=== PATIENT | female | born 1975 | race African-American/Black ===

== ENCOUNTER → 2018-07-03 | Outpatient (CLI) | payer OTHER ==
[~2018-07-03] MED LIST: CONTRAST GIVEN. MC PRN; GADOBUTROL 7.5 MMOL/7.5 ML VIAL INT ART ONE; IOHEXOL 300 MG/ML 50 ML VIAL. INT ART ONE; LIDOCAINE 1% Multi-Dose 20 ML VIAL. ID ONE
--- NOTE | 2018-07-03 14:46 | KCIC ---
EXAM: Left glenohumeral joint injection WITH Fluoroscopic guidance DATE: 07/03/2018 1:00 PM CLINICAL HISTORY: Left shoulder pain, limited range of motion left shoulder COMPARISON: None pertinent TECHNIQUE: The patient was informed of the indications and alternatives for this procedure as well as risks and benefits. No immediate contraindication identified. The patient provided informed, written consent. Laterality was confirmed by the entire team following a time out. Following initial Left glenohumeral joint localization, a suitable area was sterilely prepped and draped. Local anesthesia was administered with 1% xylocaine. With intermittent fluoroscopic observation, a 22-gauge spinal needle was advanced into the Left glenohumeral joint sheath/capsule with confirmation of via fluoroscopy. Subsequent infusion 12 cc solution containing 10 cc saline, 5 cc lidocaine 1%, 5 cc Isovue and 0.1 cc gadolinium. Hemostasis with local pressure. Local clinical exam negative for immediate complication. Patient informed re local potential signs or symptoms that may indicate need to return to ER/Ordering physician for further evaluation. Patient informed re precautionary measures after intra-synovial injection of anesthetic. Patient expressed understanding. Performing Physicians: Dr. Celeste Norton Blood Loss: 0 cc Total Fluoroscopy time: 7 seconds spot images taken: 0 Fluoroscopic screen save images: 1 IMPRESSION: Successful intra-synovial injection of aorta joint with gadolinium contrast per clinical request. Electronically signed by: Zane Norton MD (07/03/2018 2:42 PM) [facility]
--- NOTE | 2018-07-03 16:00 | KCIC ---
EXAM: MR arthrogram left shoulder DATE: 07/03/2018 2:00 PM COMPARISON: 07/03/2018 fluoroscopic image INDICATION: Left shoulder pain TECHNIQUE: Multiplanar, multisequence MRI of the left shoulder was performed without IV contrast. Exam was performed following the administration of intra-articular gadolinium contrast is described in separate report. FINDINGS: Mild AC joint degenerative changes with mild proliferative change. Iatrogenic distention of the left glenohumeral joint with gadolinium contrast. There is subacromial-subdeltoid bursal distention with gadolinium characteristics likely from full-thickness tear described below. There is a full-thickness tear of the anterior most fibers of the supraspinous tendon measuring approximately 1.1 cm in AP dimension and 8mm retraction. Rotator cuff muscle signal and bulk is normal without significant fatty atrophy. Intra-articular long head biceps tendon is normal in signal and morphology. Although the posterior and inferior labrum is slightly diminutive, no discrete labral tear is identified. No evidence for fracture or AVN. No definite full-thickness cartilage defect is identified. IMPRESSION: 1. Full-thickness tear of the anterior most fibers of the supraspinous tendon measuring 1.1 cm in AP dimension and 8 mm retraction. 2. Subacromial-subdeltoid bursal distention with gadolinium characteristics. 3. The posterior and inferior labrum is somewhat diminutive, based on morphology, this may be from prior surgery or physiologic for this patient. No discrete labral tear is identified. Electronically signed by: Zane Norton MD (07/03/2018 3:55 PM) [facility]
== END | disposition home or self-care (01) ==
LOC: KCIC 12:44
PROVIDERS: ATTEND Physician Assistant
DX: M19.012 Primary osteoarthritis, left shoulder (principal); M75.102 Unspecified rotator cuff tear or rupture of left shoulder, not specified as traumatic; M75.82 Other shoulder lesions, left shoulder
CPT/HCPCS: 73040; 73222; A9585; Q9967

== ENCOUNTER → 2018-09-15 | Outpatient (CLI) | payer OTHER ==
[~2018-09-15] MED LIST changes: +ACET500T68 PO; +AMLO5TAB10 PO; -CONTRAST GIVEN. MC PRN; +CYCL10TA2 PO; -GADOBUTROL 7.5 MMOL/7.5 ML VIAL INT ART ONE; +IBUP-1060 PO; +IOHEXOL 180 MG/ML 10 ML VIAL. ONE; -IOHEXOL 300 MG/ML 50 ML VIAL. INT ART ONE; -LIDOCAINE 1% Multi-Dose 20 ML VIAL. ID ONE; +methylPREDNISolone ACETATE 40 MG/ML VIAL. ONE; +methylPREDNISolone ACETATE 80 MG/ML VIAL. ONE
--- NOTE | 2018-09-15 22:31 | PAIN ---
DATE OF SERVICE: 09/15/2018 PROGRESS NOTE FOR PAIN CLINIC DIAGNOSES: Lumbar radiculopathy with lumbar degenerative disk disease and lumbar spinal stenosis. HISTORY OF PRESENT ILLNESS: The patient is a 43-year-old female who returns for followup status post previous evaluation and preauthorization for lumbar epidural steroid injection and also MRI results was reviewed with her today showing a significant large superimposed broad disk extrusion at the L5 level with a mild amount superior migration with severe spinal canal stenosis and mild bilateral neural foraminal narrowing present. The patient reports still significant pain in the low back, left lower extremity as it was previously. No new motor or sensory deficits and no new bowel or bladder incontinence. It is worse with walking, standing, changing positions, better with sitting or lying down, does not awaken her from sleep at night in the low back, posterior gluteus, posterior thigh on the left, posterior calf on the left at the ankle and foot. The patient reports it is a 7 on a scale of 10 at its worst over the past week, 4 on average and 3 at its least and is a 4 today. The patient reports it is aching, shooting, tingling, burning and also dull across the low back. The patient reports no new motor or sensory deficits and no new bowel or bladder incontinence or other complaints. PHYSICAL EXAMINATION: VITAL SIGNS: The patient's blood pressure 136/91, pulse 74, respirations 16 and temperature 98.6 degrees Fahrenheit. Weight is 210 pounds. GENERAL: The patient is awake, alert, oriented, appropriate and very pleasant demeanor. HEENT: Shows normocephalic and atraumatic. Extraocular movements are intact and symmetrical. Oral cavity: Mucous membranes moist and pink. Dentition is intact. NECK: Shows anterior throat supple without palpable lymphadenopathy noted. Swallow reflex symmetrical. CHEST: Shows normal with inspection. Breath sounds clear to auscultation bilaterally. HEART: Shows S1 and S2 clear. No murmurs auscultated. ABDOMEN: Soft, nontender and nondistended. No palpable organomegaly is noted. No rebound or guarding demonstrated. BACK: Shows spine grossly in the midline. Normal appearing thoracic kyphosis and some minor flattening of lumbar lordotic curvature. Lumbar paraspinous muscle shows symmetrical on inspection, on palpation shows some mild tenderness diffusely but only [id number] in the low lumbar distribution. No tenderness over the sacrum or sacroiliac regions. The patient has good rotational motion of the lumbar spine, both laterally as well as extension and flexion without difficulty. EXTREMITIES: Lower extremities show deep tendon reflexes 2+ in the patellar, 1+ tendo-calcaneus tendons. Motor exam is approximately 4 on a scale of 5 on the left, 5/5 on the right with dorsiflexion and extension. Peripheral pulses are 1+ posterior tibia. No peripheral edema is noted bilaterally. Options were discussed with the patient. The patient's old chart was reviewed as well as her current medication regimen updated. Current review of systems updated today as well. We will proceed with a lumbar epidural steroid injection first in this series with fluoroscopic guidance. Risks were again discussed including, but not limited to bleeding, infection, possibility of epidural hematoma, subsequent neurological compromise, dural puncture, headaches, spinal cord and/or nerve damage, side effects of steroid medication and poor results regarding pain control. The patient understands and wished to proceed. The patient will return to the clinic in approximately 2 weeks for followup, was counseled as to return appointment, activity level and side effects to be aware of. DIAGNOSES: Lumbar radiculopathy with lumbar degenerative disk disease and lumbar spinal stenosis. PROCEDURE: Lumbar epidural steroid injection, translaminar approach at L5-S1 level using C-arm fluoroscopic guidance under sterile prep and drape using local anesthetic. MEDICATION INJECTED: A total of 120 mg Depo-Medrol plus 10 mL of preservative-free normal saline and 2 mL of Isovue for contrast. CONDITION AT DISCHARGE: Stable. The patient tolerated the procedure well and had no complications. NICK FRIAS MD DR: KRYSTLE/esperanza JOB#: [id number] / [id number]
== END | disposition home or self-care (01) ==
LOC: PNCL 09:14
PROVIDERS: ATTEND Anesthesiology
DX: M51.16 Intervertebral disc disorders with radiculopathy, lumbar region (principal); M48.061 Spinal stenosis, lumbar region without neurogenic claudication
CPT/HCPCS: 62323; J1030; J1040; Q9965

== ENCOUNTER → 2018-10-04 | Outpatient (CLI) | payer OTHER ==
[~2018-10-04] MED LIST changes: -IOHEXOL 180 MG/ML 10 ML VIAL. ONE; -methylPREDNISolone ACETATE 40 MG/ML VIAL. ONE; -methylPREDNISolone ACETATE 80 MG/ML VIAL. ONE
--- NOTE | 2018-10-04 20:47 | PAIN ---
DATE OF SERVICE: 10/04/2018 DIAGNOSES: Lumbar radiculopathy with lumbar degenerative disk disease, lumbar spinal stenosis. HISTORY OF PRESENT ILLNESS: The patient is a 43-year-old female who returns for followup status post lumbar epidural steroid injection x 1. The patient reports about 70% improvement in her low back and left lower extremity pain. The patient reports still some numbness in the foot on the left side, tingling and burning and dull, but much better with the sharper pain that was in the back and the leg. The patient reports it is a 5 on a scale of 10 at its worst over the past week, 3 on average and a 3 at its least and is a 3 today. The patient reports it is dull with some tingling and burning in the left foot and left hip as well as into the left posterior thigh. The patient reports no new motor or sensory deficits, no new bowel or bladder incontinence or other complaints. The patient reports she has been increasing her activity with greater ease and comfort, walking greater distances, sleeping better at night, does not awaken her from sleep, much better with sitting or lying down, worse with walking and standing. The patient reports no new changes. No new bowel or bladder incontinence or other complaints. PHYSICAL EXAMINATION: VITAL SIGNS: The patient's blood pressure 157/99, pulse 88, respirations 18, temperature is 98.2 degrees Fahrenheit, weight is 211 pounds. GENERAL: The patient is awake, alert, oriented, appropriate, very pleasant demeanor. HEENT: Head shows normocephalic, atraumatic. Extraocular movements intact and symmetrical. Oral cavity: Mucous membranes moist and pink. NECK: Shows anterior throat supple. CHEST: Shows breath sounds clear to auscultation bilaterally. HEART: Shows S1, S2 clear. ABDOMEN: Soft, nontender, nondistended. BACK: Shows spine grossly in the midline. Lumbar paraspinous musculature shows symmetrical on inspection, with palpation shows some moderate tenderness diffusely in the low lumbar distribution, more on the left than the right, but symmetrical without evidence of atrophy or hypertrophy. The patient has good rotational motion of lumbar spine, both laterally as well as extension and flexion without difficulty. EXTREMITIES: Lower extremities show deep tendon reflexes at 2+ in the patellar, 1+ tendo-calcaneus tendons. Motor exam is strong with approximately 4 on a scale of 5 left dorsiflexion, extension, 5/5 on the right. Peripheral pulses are 1+ posterior tibia. No peripheral edema is noted. Options were discussed with the patient. The patient's old chart was reviewed as her current medication regimen and updated. Current review of systems is updated today as well. We will hold on injection at this time as she is scheduled for a rotator cuff surgery in about three days and the patient would like to wait until after her surgery before anymore intervention, although she would like to follow up with a second lumbar epidural steroid injection as she has been approved for this as well with her insurance [employer]. We will wait until after her surgery. I asked her to consult with her surgeon regarding timing for the next steroid shot as well and she will follow up after surgery. NICK FRIAS MD DR: KRYSTLE/esperanza JOB#: [id number] / [id number]
== END | disposition home or self-care (01) ==
LOC: PNCL 09:19
PROVIDERS: ATTEND Anesthesiology
DX: M51.16 Intervertebral disc disorders with radiculopathy, lumbar region (principal); M48.061 Spinal stenosis, lumbar region without neurogenic claudication
CPT/HCPCS: G0463

== ENCOUNTER → 2018-11-09 | Outpatient (CLI) | payer OTHER ==
[~2018-11-09] MED LIST changes: +IOHEXOL 180 MG/ML 10 ML VIAL. ONE; +methylPREDNISolone ACETATE 40 MG/ML VIAL. ONE; +methylPREDNISolone ACETATE 80 MG/ML VIAL. ONE
--- NOTE | 2018-11-10 02:28 | PAIN ---
DATE OF SERVICE: 11/09/2018 PROGRESS NOTE FOR PAIN CLINIC: DIAGNOSES: Lumbar radiculopathy with lumbar degenerative disk disease and lumbar spinal stenosis. HISTORY OF PRESENT ILLNESS: The patient is a 43-year-old female who returns for followup status post lumbar epidural steroid injection x 1 with about 70% improvement. The patient had waited for preauthorization for second injection that was obtained. I would like to proceed today, still pain in low back, left lower extremity, posterior gluteus, posterior thigh, posterior calf and foot. The patient reports it is returning with a tingling pain, cramping and stinging in the lower leg into the hip and thigh as well as radiating pain, shooting and dull and aching across the back. The patient reports it is a 10 on a scale of 10 at its worst in the past week, 8 on average, 6 at its least and is a 6 today. The patient reports that she has been doing better with sitting or lying down, awakens her from sleep at night occasionally, but not usually, reports she sleeps about 7-8 hours at a time. The patient reports no new motor or sensory deficits, no new bowel or bladder incontinence. First injection did very well and the pain returned about one week ago, which has been almost 2 months since her first injection. The patient reports no new motor or sensory deficits. She recently had some left shoulder surgery for rotator cuff repair and that is healing well and she feels better with that as well. PHYSICAL EXAMINATION: VITAL SIGNS: The patient's blood pressure 152/94, pulse 91, respirations are 16, temperature 98.3 degrees Fahrenheit. GENERAL: The patient is awake, alert, oriented, appropriate, very pleasant demeanor. HEENT: Head shows normocephalic, atraumatic. Extraocular movements are intact and symmetrical. Oral cavity, mucous membranes are moist and pink. Dentition is intact. NECK: Shows anterior throat supple without palpable lymphadenopathy noted. Swallow reflex symmetrical. Neck shows full rotational motion of the cervical spine without difficulty. CHEST: Shows normal with inspection. Breath sounds clear to auscultation bilaterally. HEART: Shows S1, S2 clear. ABDOMEN: Obese, but soft, nontender, nondistended. BACK: Shows spine grossly in the midline, normal-appearing thoracic kyphosis, some minor flattening of lumbar lordotic curvature. Lumbar paraspinous shows symmetrical on inspection, on palpation shows some moderate tenderness only in the low lumbar distribution and only diffusely without radiation, without trigger points. The patient has good rotational motion of lumbar spine, both laterally as well as extension and flexion without difficulty. EXTREMITIES: Lower extremities show deep tendon reflexes 2+ in the patellar, 1+ tendo-calcaneus tendons. Motor exam is approximately 4 on a scale of 5 left dorsiflexion, extension and 5/5 on the right. Peripheral pulses are 1+ posterior tibial. No peripheral edema is noted bilaterally. Options were discussed with the patient. The patient's old chart was reviewed as her current medication regimen updated. Current review of systems updated today as well. We will proceed with lumbar epidural steroid injections, the second in this series with fluoroscopic guidance. Risks were again discussed including, but not limited to bleeding, infection, possibility of epidural hematoma, subsequent neurological compromise, dural puncture headaches, spinal cord and/or nerve damage, side effects of steroid medication and poor results regarding pain control. The patient understands and wished to proceed. The patient will return to clinic in approximately 2 weeks for followup, was counseled as to return appointment, activity level and side effects to be aware of. DIAGNOSES: Lumbar radiculopathy with lumbar degenerative disk disease, lumbar spinal stenosis. PROCEDURE: Lumbar epidural steroid injection, translaminar approach at L5-S1 level using C-arm fluoroscopic guidance under sterile prep and drape using local anesthetic. MEDICATION INJECTED: A total of 120 mg Depo-Medrol plus 10 mL of preservative-free saline and 2 mL of contrast. CONDITION AT DISCHARGE: Stable. The patient tolerated procedure well, had no complications. NICK FRIAS MD DR: KRYSTLE/esperanza JOB#: [id number] / [id number]
== END ==
LOC: PNCL 09:24
PROVIDERS: ATTEND Anesthesiology
DX: M51.16 Intervertebral disc disorders with radiculopathy, lumbar region (principal); M48.061 Spinal stenosis, lumbar region without neurogenic claudication
CPT/HCPCS: 62323; J1030; J1040; Q9965